=== PATIENT | male | born 1955 | race African-American/Black ===

== ENCOUNTER 2017-10-15 13:35 | Inpatient (IN) ==
[2017-10-15] MEDS ORDERED: PANTOPRAZOLE 40 MG VIAL IV STA (13:47)
[2017-10-15] MEDS ORDERED: ONDANSETRON 4 MG/2 ML VIAL IV STA (13:47)
[2017-10-15] MEDS ORDERED: SODIUM CHLORIDE 0.9% 500 ML IV STA (13:47)
[2017-10-15] MEDS ORDERED: HYDROmorphone 2 MG/1 ML VIAL IV STA (13:47)
[2017-10-15] MEDS ORDERED: DILTIAZEM 50 MG/10 ML VIAL IV STA (13:50)
[2017-10-15] MEDS ORDERED: DILTIAZEM INJ 100 MG in SODIUM CHLORIDE 0.9% 100 ML IV SCH (14:00)
[2017-10-15] MEDS ORDERED: DILTIAZEM 50 MG/10 ML VIAL IV ONE (14:24)
[2017-10-15] MEDS ORDERED: DILTIAZEM 100 MG VIAL.ADD IV ONE (14:24)
[2017-10-15] MEDS ORDERED: PANTOPRAZOLE 40 MG VIAL IV ONE (15:55)
[2017-10-15] MEDS ORDERED: ONDANSETRON 4 MG/2 ML VIAL ONE (15:55)
[2017-10-15] MEDS ORDERED: HYDROmorphone 2 MG/1 ML VIAL ONE (15:56)
[2017-10-15 16:03] LABS: Basophils % 0.7 % (0.0-0.8); Hemoglobin 10.8 GM/DL (14.0-18.0); Immature Granulocytes % 0.4 %; Immature Granulocytes Absolute 0.02 #; Lymphocytes # 0.9 10*3/uL (1.4-4.0); Lymphocytes % 15.1 % (21.2-54.2); Mean Corpuscular HGB Conc 30.9 GM/DL (32-36); Mean Corpuscular Hemoglobin 30 PG (27-34); Mean Corpuscular Volume 96.4 FL (87-102); Mean Platelet Volume 13.3 FL (9.6-12.0); Monocytes # 0.6 10*3/uL (0.11-0.8); Monocytes % 11.4 % (1.7-12.7); Neutrophils # 4.1 10*3/uL (1.4-7.4); Neutrophils % 72.4 % (38.7-73.9); Platelet Count 59 T/CUMM (130-400); Red Blood Count 3.63 MC/CUMM (3.8-5.5); Red Cell Distribution Width 17.3 % (9.3-17.3); White Blood Count 5.6 T/CUMM (4-12)
[2017-10-15 16:21] LABS: Platelet Estimate Decreased
[2017-10-15 16:38] LABS: Alanine Aminotransferase 18 U/L (16-61); Albumin 3.1 G/DL (3.4-5.0); Alkaline Phosphatase 201 U/L (45-117); Aspartate Amino Transferase 22 U/L (0-37); Blood Urea Nitrogen 53 MG/DL (7-18); Calcium 9.1 MG/DL (8.5-10.1); Glucose 60 MG/DL (74-106); Osmolality,Calculated 286.7 MOS/KG (273-304); Potassium 3.7 MMOL/L (3.5-5.1); Sodium 138 MMOL/L (136-145); Total Protein 6.7 G/DL (6.4-8.3)
[2017-10-15 16:44] LABS: Lactic Acid 3.2 MMOL/L (0.4-2.0); Troponin I Only 0.589 NG/ML (0.00-0.045)
[2017-10-15] MEDS ORDERED: NALOXONE 0.4 MG/ML VIAL ONE (16:58)
[2017-10-15] MEDS ORDERED: NALOXONE 0.4 MG/ML VIAL IV STA (17:00)
[2017-10-15] MEDS ORDERED: DEXTROSE 50% 25 GM/50 ML SYRINGE IV ONE (18:47)
[2017-10-15 21:30] LABS: Lactic Acid 2.4 MMOL/L (0.4-2.0)
[2017-10-15] MEDS ORDERED: PHENYLEPHRINE DRIP 40 MG/250 ML PREMIX IV ONE (21:53)
[2017-10-15] MEDS: PHENYLEPHRINE DRIP 40 MG/250 ML PREMIX IV SCH (21:55)
[2017-10-15] MEDS ORDERED: CARVEDILOL 25 MG TABLET PO SCH (22:00)
[2017-10-15] MEDS ORDERED: VECURONIUM 10 MG VIAL IV ONE ×2 (22:07→22:24)
[2017-10-15] MEDS ORDERED: ETOMIDATE 20 MG/10 ML VIAL IV ONE ×2 (22:07→22:24)
[2017-10-15] MEDS ORDERED: PROPOFOL 1,000 MG/100 ML BOTTLE IV ONE (22:10)
[2017-10-15] MEDS ORDERED: ONDANSETRON 4 MG/2 ML VIAL IV PRN (22:24)
[2017-10-15] MEDS ORDERED: NOREPINEPHRINE 8 MG in SODIUM CHLORIDE 0.9% 242 ML IV SCH (22:24)
[2017-10-15] MEDS ORDERED: GLUCAGON 1 MG VIAL IM PRN (22:24)
[2017-10-15] MEDS ORDERED: ZALEPLON 5 MG CAPSULE PO PRN (22:24)
[2017-10-15] MEDS ORDERED: fentaNYL 100 MCG/2 ML VIAL IV PRN (22:24)
[2017-10-15] MEDS ORDERED: AMIODARONE INJ 150 MG in DEXTROSE 5% 100 ML IV ONE (22:24)
[2017-10-15] MEDS ORDERED: SODIUM CHLORIDE 0.9% 1,000 ML IV ONE (22:24)
[2017-10-15] MEDS ORDERED: AMIODARONE INJ 150 MG in DEXTROSE 5% 100 ML IV STA (22:24)
[2017-10-15] MEDS: PROPOFOL 1,000 MG/100 ML BOTTLE IV SCH (22:24)
[2017-10-15] MEDS ORDERED: NOREPINEPHRINE 4 MG/4 ML VIAL IV ONE ×2 (22:33→22:41)
[2017-10-15] MEDS: NOREPINEPHRINE 16 MG in SODIUM CHLORIDE 0.9% 234 ML IV SCH (22:50)
[2017-10-15] MEDS ORDERED: METOPROLOL TARTRATE 5 MG/5 ML VIAL IV ONE (22:52)
[2017-10-15 23:10] LABS: ABG Base Excess -2.4 MMOL/L (-2.5-2.5); ABG HCO3 22.4 MMOL/L (20-26); ABG PCO2 33.3 MM HG (35-48); ABG PH 7.416 (7.35-7.45)
[2017-10-15 23:11] LABS: Basophils % 0.5 % (0.0-0.8); Hematocrit 36.9 VOL% (42.0-52.0); Hemoglobin 11.3 GM/DL (14.0-18.0); Immature Granulocytes % 0.3 %; Immature Granulocytes Absolute 0.02 #; Lymphocytes # 0.8 10*3/uL (1.4-4.0); Lymphocytes % 12.1 % (21.2-54.2); Mean Corpuscular HGB Conc 30.6 GM/DL (32-36); Mean Corpuscular Hemoglobin 29 PG (27-34); Mean Corpuscular Volume 93.9 FL (87-102); Mean Platelet Volume 12.7 FL (9.6-12.0); Monocytes # 0.7 10*3/uL (0.11-0.8); Monocytes % 11.6 % (1.7-12.7); Neutrophils # 4.8 10*3/uL (1.4-7.4); Neutrophils % 75.5 % (38.7-73.9); Platelet Count 64 T/CUMM (130-400); Red Blood Count 3.93 MC/CUMM (3.8-5.5); Red Cell Distribution Width 17.3 % (9.3-17.3); White Blood Count 6.3 T/CUMM (4-12)
[2017-10-15 23:52] LABS: Anisocytosis Slight; Macrocytosis 1+; Platelet Estimate Decreased
[2017-10-15] MEDS ORDERED: ALBUTEROL/IPRATROPIUM 3 ML NEB RESP TX PRN (23:57)
[2017-10-15 23:59] LABS: Alanine Aminotransferase 19 U/L (16-61); Albumin 3.2 G/DL (3.4-5.0); Alkaline Phosphatase 208 U/L (45-117); Aspartate Amino Transferase 19 U/L (0-37); Blood Urea Nitrogen 57 MG/DL (7-18); Calcium 8.8 MG/DL (8.5-10.1); Glucose 105 MG/DL (74-106); Osmolality,Calculated 288.8 MOS/KG (273-304); Potassium 3.9 MMOL/L (3.5-5.1); Sodium 137 MMOL/L (136-145); Total Protein 6.4 G/DL (6.4-8.3)
[2017-10-16 00:04] LABS: Lactic Acid 3.2 MMOL/L (0.4-2.0); Troponin I Only 0.607 NG/ML (0.00-0.045)
[2017-10-16] MEDS: SEVELAMER CARBONATE 800 MG TABLET PO SCH ×4 (00:15→23:54)
[2017-10-16] MEDS: INSULIN LISPRO 100 UNIT/ML SUBCUT SCH ×5 (00:17→23:33)
[2017-10-16] MEDS: METOPROLOL TARTRATE 5 MG/5 ML VIAL IV SCH ×5 (01:07→23:25)
[2017-10-16] MEDS: ENOXAPARIN 30 MG/0.3 ML SYRINGE SUBCUT SCH ×2 (01:07→23:54)
[2017-10-16] MEDS: fentaNYL INJ 1,250 MCG in SODIUM CHLORIDE 0.9% 225 ML IV SCH ×3 (01:29→19:30)
[2017-10-16] MEDS ORDERED: ALBUMIN 25% 50 GM in PREMIX 1 EACH IV ONE (01:47)
[2017-10-16] MEDS: HYDROCORTISONE 100 MG VIAL IV SCH ×3 (02:04→17:37)
[2017-10-16] MEDS: ALBUTEROL/IPRATROPIUM 3 ML NEB RESP TX SCH ×4 (02:05→19:41)
[2017-10-16] MEDS: PROPOFOL 1,000 MG/100 ML BOTTLE IV SCH ×5 (02:07→21:25)
[2017-10-16] MEDS ORDERED: METOPROLOL TARTRATE 5 MG/5 ML VIAL IV ONE (02:40)
[2017-10-16] MEDS ORDERED: AMIODARONE INJ 150 MG in DEXTROSE 5% 100 ML IV ONE (02:44)
[2017-10-16 05:17] LABS: ABG Base Excess -5.5 MMOL/L (-2.5-2.5); ABG Oxygen Saturation 99.2 % (95-100); ABG PCO2 41.7 MM HG (35-48); ABG PH 7.304 (7.35-7.45); ABG TCO2 18.6 MMOL/L (23-27)
[2017-10-16] MEDS ORDERED: AMIODARONE INJ 450 MG in DEXTROSE 5% 241 ML IV SCH (05:30)
[2017-10-16] MEDS ORDERED: NOREPINEPHRINE 4 MG/4 ML VIAL IV ONE ×2 (05:40→14:32)
[2017-10-16] MEDS: NOREPINEPHRINE 16 MG in SODIUM CHLORIDE 0.9% 234 ML IV SCH ×2 (05:46→14:38)
[2017-10-16 06:17] LABS: Basophils % 0.3 % (0.0-0.8); Hematocrit 38.1 VOL% (42.0-52.0); Hemoglobin 11.6 GM/DL (14.0-18.0); Immature Granulocytes % 0.7 %; Immature Granulocytes Absolute 0.06 #; Lymphocytes # 0.5 10*3/uL (1.4-4.0); Lymphocytes % 5.7 % (21.2-54.2); Mean Corpuscular HGB Conc 30.4 GM/DL (32-36); Mean Corpuscular Hemoglobin 29 PG (27-34); Mean Corpuscular Volume 96.5 FL (87-102); Mean Platelet Volume 12.9 FL (9.6-12.0); Monocytes # 0.9 10*3/uL (0.11-0.8); Neutrophils # 7.3 10*3/uL (1.4-7.4); Neutrophils % 83.3 % (38.7-73.9); Red Blood Count 3.95 MC/CUMM (3.8-5.5); Red Cell Distribution Width 17.5 % (9.3-17.3); White Blood Count 8.7 T/CUMM (4-12)
[2017-10-16 06:23] LABS: Platelet Count 84 T/CUMM (130-400)
[2017-10-16 06:44] LABS: Calcium 9.5 MG/DL (8.5-10.1); Magnesium 2.5 MG/DL (1.8-2.4); Osmolality,Calculated 291.8 MOS/KG (273-304); Potassium 4.4 MMOL/L (3.5-5.1)
[2017-10-16 06:47] LABS: Anisocytosis Slight; Burr Cells 1+; Macrocytosis 2+; Platelet Estimate Decreased
[2017-10-16 06:54] LABS: Troponin I Only 0.674 NG/ML (0.00-0.045)
[2017-10-16 08:19] LABS: ABG Base Excess -8.1 MMOL/L (-2.5-2.5); ABG HCO3 17.9 MMOL/L (20-26); ABG Oxygen Saturation 97.5 % (95-100); ABG PCO2 36.4 MM HG (35-48); ABG PH 7.297 (7.35-7.45); ABG TCO2 16.1 MMOL/L (23-27)
[2017-10-16] MEDS: PHENYLEPHRINE DRIP 40 MG/250 ML PREMIX IV SCH ×4 (08:20→22:40)
[2017-10-16] MEDS ORDERED: LIDOCAINE 100 MG/5 ML SYRINGE ONE (08:43)
[2017-10-16] MEDS ORDERED: LIDOCAINE 100 MG/5 ML SYRINGE IV ONE (08:44)
[2017-10-16] MEDS: CINACALCET 30 MG TABLET PO SCH (09:16)
[2017-10-16] MEDS: PANTOPRAZOLE 40 MG TABLET PO SCH (09:16)
[2017-10-16] MEDS ORDERED: VANCOMYCIN INJ 1,000 MG in SODIUM CHLORIDE 0.9% 250 ML IV ONE (09:39)
[2017-10-16] MEDS: LEVOFLOXACIN INJ 250 MG in PREMIX 1 EACH IV SCH (11:17)
[2017-10-16] MEDS: DILTIAZEM INJ 100 MG in SODIUM CHLORIDE 0.9% 100 ML IV SCH ×2 (11:17→20:30)
[2017-10-16] MEDS ORDERED: HEPARIN 10,000 UNIT/10 ML VIAL IV SCH (15:30)
[2017-10-17] MEDS: ALBUTEROL/IPRATROPIUM 3 ML NEB RESP TX SCH ×4 (00:20→19:42)
[2017-10-17] MEDS: NOREPINEPHRINE 16 MG in SODIUM CHLORIDE 0.9% 234 ML IV SCH ×4 (01:50→18:46)
[2017-10-17] MEDS: PROPOFOL 1,000 MG/100 ML BOTTLE IV SCH ×5 (01:50→22:51)
[2017-10-17] MEDS: PHENYLEPHRINE DRIP 40 MG/250 ML PREMIX IV SCH ×7 (01:50→17:30)
[2017-10-17] MEDS: HYDROCORTISONE 100 MG VIAL IV SCH ×3 (03:59→17:13)
[2017-10-17] MEDS: DILTIAZEM INJ 100 MG in SODIUM CHLORIDE 0.9% 100 ML IV SCH ×3 (04:00→17:12)
[2017-10-17] MEDS: fentaNYL INJ 1,250 MCG in SODIUM CHLORIDE 0.9% 225 ML IV SCH ×2 (05:21→14:43)
[2017-10-17 05:32] LABS: Basophils % 0.2 % (0.0-0.8); Hematocrit 40.8 VOL% (42.0-52.0); Hemoglobin 12.8 GM/DL (14.0-18.0); Immature Granulocytes % 0.6 %; Immature Granulocytes Absolute 0.06 #; Lymphocytes # 0.5 10*3/uL (1.4-4.0); Lymphocytes % 5.2 % (21.2-54.2); Mean Corpuscular HGB Conc 31.4 GM/DL (32-36); Mean Corpuscular Hemoglobin 29 PG (27-34); Mean Corpuscular Volume 93.6 FL (87-102); Mean Platelet Volume 11.7 FL (9.6-12.0); Monocytes # 1.5 10*3/uL (0.11-0.8); Monocytes % 14.6 % (1.7-12.7); NRBC # 0.04 10*3/uL; Neutrophils # 7.9 10*3/uL (1.4-7.4); Neutrophils % 79.4 % (38.7-73.9); Platelet Count 124 T/CUMM (130-400); Red Blood Count 4.36 MC/CUMM (3.8-5.5); Red Cell Distribution Width 17.8 % (9.3-17.3)
[2017-10-17 05:57] LABS: Calcium 9.4 MG/DL (8.5-10.1); Magnesium 2.3 MG/DL (1.8-2.4); Osmolality,Calculated 283.2 MOS/KG (273-304); Potassium 4.5 MMOL/L (3.5-5.1)
[2017-10-17] MEDS: METOPROLOL TARTRATE 5 MG/5 ML VIAL IV SCH ×3 (06:40→17:13)
[2017-10-17] MEDS ORDERED: AMIODARONE INJ 150 MG in DEXTROSE 5% 100 ML IV ONE (07:20)
[2017-10-17] MEDS ORDERED: AMIODARONE INJ 450 MG in DEXTROSE 5% 241 ML IV SCH (07:30)
[2017-10-17 07:52] LABS: ABG Base Excess -7.6 MMOL/L (-2.5-2.5); ABG HCO3 18.3 MMOL/L (20-26); ABG Oxygen Saturation 95.4 % (95-100); ABG PCO2 42.5 MM HG (35-48); ABG PH 7.264 (7.35-7.45); ABG PO2 97.8 MM HG (80-95); ABG TCO2 17.3 MMOL/L (23-27)
[2017-10-17] MEDS ORDERED: LIDOCAINE 1% 20 ML VIAL MISC INJ ONE (08:20)
[2017-10-17] MEDS ORDERED: LIDOCAINE 2% 20 ML VIAL RESP TX ONE (08:20)
[2017-10-17] MEDS: INSULIN LISPRO 100 UNIT/ML SUBCUT SCH ×4 (08:48→23:30)
[2017-10-17] MEDS: PANTOPRAZOLE 40 MG TABLET PO SCH (08:55)
[2017-10-17] MEDS: CINACALCET 30 MG TABLET PO SCH (08:55)
[2017-10-17] MEDS: SEVELAMER CARBONATE 800 MG TABLET PO SCH ×3 (08:55→22:10)
[2017-10-17] MEDS ORDERED: NOREPINEPHRINE 4 MG/4 ML VIAL IV ONE (11:13)
[2017-10-17] MEDS ORDERED: ALBUMIN 25% 12.5 GM in PREMIX 1 EACH IV SCH (13:30)
[2017-10-17] MEDS: AMIODARONE INJ 450 MG in DEXTROSE 5% 241 ML IV SCH (16:25)
[2017-10-17] MEDS: PHENYLEPHRINE INJ 160 MG in SODIUM CHLORIDE 0.9% 234 ML IV SCH (19:25)
[2017-10-17] MEDS: ENOXAPARIN 30 MG/0.3 ML SYRINGE SUBCUT SCH (22:10)
[2017-10-18] MEDS: NOREPINEPHRINE 16 MG in SODIUM CHLORIDE 0.9% 234 ML IV SCH ×3 (00:27→15:16)
[2017-10-18] MEDS: METOPROLOL TARTRATE 5 MG/5 ML VIAL IV SCH ×4 (00:28→18:09)
[2017-10-18] MEDS: INSULIN LISPRO 100 UNIT/ML SUBCUT SCH ×4 (00:28→18:49)
[2017-10-18] MEDS: ALBUTEROL/IPRATROPIUM 3 ML NEB RESP TX SCH ×4 (01:46→21:13)
[2017-10-18] MEDS: DILTIAZEM INJ 100 MG in SODIUM CHLORIDE 0.9% 100 ML IV SCH ×4 (02:18→20:03)
[2017-10-18] MEDS: PHENYLEPHRINE INJ 160 MG in SODIUM CHLORIDE 0.9% 234 ML IV SCH ×3 (02:56→18:49)
[2017-10-18 04:44] LABS: ABG Base Excess -8.7 MMOL/L (-2.5-2.5); ABG HCO3 17.4 MMOL/L (20-26); ABG Oxygen Saturation 93.3 % (95-100); ABG PCO2 53.6 MM HG (35-48); ABG PO2 88.8 MM HG (80-95); ABG TCO2 18.4 MMOL/L (23-27)
[2017-10-18 04:53] LABS: Basophils % 0.1 % (0.0-0.8); Hematocrit 42.4 VOL% (42.0-52.0); Hemoglobin 13.1 GM/DL (14.0-18.0); Immature Granulocytes % 0.5 %; Immature Granulocytes Absolute 0.05 #; Lymphocytes # 0.4 10*3/uL (1.4-4.0); Lymphocytes % 3.8 % (21.2-54.2); Mean Corpuscular HGB Conc 30.9 GM/DL (32-36); Mean Corpuscular Hemoglobin 29 PG (27-34); Mean Corpuscular Volume 94.9 FL (87-102); Mean Platelet Volume 11.5 FL (9.6-12.0); Monocytes # 1.8 10*3/uL (0.11-0.8); Monocytes % 16.1 % (1.7-12.7); NRBC # 0.13 10*3/uL; Neutrophils # 8.8 10*3/uL (1.4-7.4); Neutrophils % 79.5 % (38.7-73.9); Platelet Count 149 T/CUMM (130-400); Red Blood Count 4.47 MC/CUMM (3.8-5.5); Red Cell Distribution Width 17.9 % (9.3-17.3); White Blood Count 11.1 T/CUMM (4-12)
[2017-10-18 04:54] LABS: ABG PH 7.187 (7.35-7.45)
[2017-10-18] MEDS: HYDROCORTISONE 100 MG VIAL IV SCH ×3 (05:05→18:09)
[2017-10-18 05:32] LABS: Magnesium 2.4 MG/DL (1.8-2.4); Osmolality,Calculated 286.5 MOS/KG (273-304); Potassium 5.6 MMOL/L (3.5-5.1)
[2017-10-18 05:39] LABS: Burr Cells Slight; Giant Platelets Few; Hypochromasia Slight; Lymphocytes 3 % (20-55); Macrocytosis Slight; Nucleated Red Blood Cells 3 (0-5); Ovalocytes Slight; Platelet Estimate Normal; Segmented Neutrophils 85 % (50-85); Total Cells Counted 100
[2017-10-18 06:19] LABS: HIV Antigen/Antibody Result Nonreactive (Nonreactive); Hepatitis B Surface Ag Quant < 0.10 Index; Hepatitis B Surface Ag Result Negative (Negative); Hepatitis C Virus Ab Quant 0.06 Index; Hepatitis C Virus Ab Result Negative (Negative)
[2017-10-18 07:47] LABS: ABG HCO3 17.6 MMOL/L (20-26); ABG PCO2 36.5 MM HG (35-48); ABG PH 7.301 (7.35-7.45); ABG PO2 90.5 MM HG (80-95); ABG TCO2 18.7 MMOL/L (23-27)
[2017-10-18 07:48] LABS: ABG Oxygen Saturation 96.2 % (95-100)
[2017-10-18] MEDS: AMIODARONE INJ 450 MG in DEXTROSE 5% 241 ML IV SCH (09:23)
[2017-10-18] MEDS: SEVELAMER CARBONATE 800 MG TABLET PO SCH ×3 (10:41→22:19)
[2017-10-18] MEDS: LEVOFLOXACIN INJ 250 MG in PREMIX 1 EACH IV SCH (10:41)
[2017-10-18] MEDS: CINACALCET 30 MG TABLET PO SCH (10:41)
[2017-10-18] MEDS: PANTOPRAZOLE 40 MG TABLET PO SCH (10:42)
[2017-10-18] MEDS: AMIODARONE 200 MG TABLET PO SCH ×2 (10:42→22:19)
[2017-10-18] MEDS: fentaNYL INJ 1,250 MCG in SODIUM CHLORIDE 0.9% 225 ML IV SCH (20:02)
[2017-10-18] MEDS: ENOXAPARIN 30 MG/0.3 ML SYRINGE SUBCUT SCH (22:20)
[2017-10-18] MEDS: PROPOFOL 1,000 MG/100 ML BOTTLE IV SCH (22:30)
[2017-10-19] MEDS: INSULIN LISPRO 100 UNIT/ML SUBCUT SCH ×4 (00:58→18:15)
[2017-10-19] MEDS: METOPROLOL TARTRATE 5 MG/5 ML VIAL IV SCH ×2 (00:58→06:36)
[2017-10-19] MEDS: NOREPINEPHRINE 16 MG in SODIUM CHLORIDE 0.9% 234 ML IV SCH ×2 (00:59→12:29)
[2017-10-19] MEDS: ALBUTEROL/IPRATROPIUM 3 ML NEB RESP TX SCH ×4 (01:08→20:59)
[2017-10-19] MEDS: DILTIAZEM INJ 100 MG in SODIUM CHLORIDE 0.9% 100 ML IV SCH (02:17)
[2017-10-19] MEDS: HYDROCORTISONE 100 MG VIAL IV SCH ×4 (02:17→20:47)
[2017-10-19] MEDS: PHENYLEPHRINE INJ 160 MG in SODIUM CHLORIDE 0.9% 234 ML IV SCH ×3 (03:00→19:17)
[2017-10-19 05:09] LABS: Hematocrit 41.6 VOL% (42.0-52.0); Hemoglobin 13.4 GM/DL (14.0-18.0); Immature Granulocytes % 0.4 %; Immature Granulocytes Absolute 0.05 #; Lymphocytes # 0.3 10*3/uL (1.4-4.0); Lymphocytes % 2.7 % (21.2-54.2); Mean Corpuscular HGB Conc 32.2 GM/DL (32-36); Mean Corpuscular Hemoglobin 30 PG (27-34); Mean Corpuscular Volume 91.8 FL (87-102); Mean Platelet Volume 12.1 FL (9.6-12.0); Monocytes # 1.1 10*3/uL (0.11-0.8); Monocytes % 10.1 % (1.7-12.7); NRBC # 0.14 10*3/uL; Neutrophils # 9.7 10*3/uL (1.4-7.4); Neutrophils % 86.8 % (38.7-73.9); Platelet Count 130 T/CUMM (130-400); Red Blood Count 4.53 MC/CUMM (3.8-5.5); Red Cell Distribution Width 18.5 % (9.3-17.3); White Blood Count 11.2 T/CUMM (4-12)
[2017-10-19] MEDS: fentaNYL INJ 1,250 MCG in SODIUM CHLORIDE 0.9% 225 ML IV SCH ×3 (05:21→19:17)
[2017-10-19 05:44] LABS: Albumin 3.1 G/DL (3.4-5.0); Bilirubin,Total 1.2 MG/DL (0.2-1.0); Calcium 9.4 MG/DL (8.5-10.1); Osmolality,Calculated 283.2 MOS/KG (273-304); Potassium 4.3 MMOL/L (3.5-5.1); Total Protein 6.5 G/DL (6.4-8.3)
[2017-10-19 06:01] LABS: ABG Base Excess -6.7 MMOL/L (-2.5-2.5); ABG HCO3 20.1 MMOL/L (20-26); ABG Oxygen Saturation 88.3 % (95-100); ABG PCO2 44.7 MM HG (35-48); ABG PO2 72.7 MM HG (80-95); ABG TCO2 21.4 MMOL/L (23-27)
[2017-10-19 06:23] LABS: Lymphocytes 3 % (20-55); Microcytosis 1+; Nucleated Red Blood Cells 1 (0-5); Segmented Neutrophils 93 % (50-85); Total Cells Counted 100
[2017-10-19 06:24] LABS: Burr Cells Slight; Hypochromasia 1+; Ovalocytes Slight; Platelet Estimate Decreased
[2017-10-19] MEDS ORDERED: VECURONIUM 10 MG VIAL IV ONE ×2 (08:48→08:50)
[2017-10-19] MEDS ORDERED: SODIUM CHLORIDE 0.9% 500 ML IV ONE (08:48)
[2017-10-19] MEDS: SEVELAMER CARBONATE 800 MG TABLET PO SCH ×3 (10:13→20:47)
[2017-10-19] MEDS: CINACALCET 30 MG TABLET PO SCH (10:13)
[2017-10-19] MEDS: cefTRIAXone 1,000 MG in SYRINGE 1 EACH IV SCH (10:14)
[2017-10-19] MEDS: PANTOPRAZOLE 40 MG TABLET PO SCH (10:14)
[2017-10-19] MEDS: AMIODARONE 200 MG TABLET PO SCH ×2 (10:14→20:47)
[2017-10-19] MEDS: FLUCONAZOLE 200 MG TABLET PO SCH (12:57)
[2017-10-19] MEDS: FAT EMULSION 20% 250 ML IV SCH (15:23)
[2017-10-19] MEDS ORDERED: INSULIN REGULAR IV SCH (17:00)
[2017-10-19] MEDS ORDERED: MULTIVITAMIN IV SCH (17:00)
[2017-10-19] MEDS ORDERED: [UNRECOGNIZED DRUG - OTHER] IV SCH (17:00)
[2017-10-19] MEDS ORDERED: DEXTROSE 10% 1,000 ML IV PRN (17:00)
[2017-10-19] MEDS: ENOXAPARIN 30 MG/0.3 ML SYRINGE SUBCUT SCH (20:46)
[2017-10-20] MEDS: PROPOFOL 1,000 MG/100 ML BOTTLE IV SCH ×2 (00:30→23:34)
[2017-10-20] MEDS: fentaNYL INJ 1,250 MCG in SODIUM CHLORIDE 0.9% 225 ML IV SCH ×4 (01:03→18:15)
[2017-10-20] MEDS: INSULIN LISPRO 100 UNIT/ML SUBCUT SCH ×4 (01:18→17:40)
[2017-10-20] MEDS: ALBUTEROL/IPRATROPIUM 3 ML NEB RESP TX SCH ×4 (01:31→21:01)
[2017-10-20] MEDS: DILTIAZEM INJ 100 MG in SODIUM CHLORIDE 0.9% 100 ML IV SCH ×3 (01:40→23:38)
[2017-10-20] MEDS: NOREPINEPHRINE 16 MG in SODIUM CHLORIDE 0.9% 234 ML IV SCH (02:23)
[2017-10-20] MEDS: PHENYLEPHRINE INJ 160 MG in SODIUM CHLORIDE 0.9% 234 ML IV SCH ×3 (02:27→17:39)
[2017-10-20 05:29] LABS: ABG Base Excess -6.6 MMOL/L (-2.5-2.5); ABG HCO3 19.2 MMOL/L (20-26); ABG Oxygen Saturation 95.5 % (95-100); ABG PH 7.309 (7.35-7.45); ABG TCO2 20.3 MMOL/L (23-27)
[2017-10-20 05:39] LABS: Basophils % 0.1 % (0.0-0.8); Hematocrit 41.5 VOL% (42.0-52.0); Hemoglobin 12.8 GM/DL (14.0-18.0); Immature Granulocytes % 0.5 %; Immature Granulocytes Absolute 0.05 #; Lymphocytes # 0.3 10*3/uL (1.4-4.0); Lymphocytes % 2.9 % (21.2-54.2); Mean Corpuscular HGB Conc 30.8 GM/DL (32-36); Mean Corpuscular Hemoglobin 29 PG (27-34); Mean Corpuscular Volume 94.5 FL (87-102); Mean Platelet Volume 11.6 FL (9.6-12.0); Monocytes # 1.4 10*3/uL (0.11-0.8); NRBC # 0.06 10*3/uL; Neutrophils # 8.1 10*3/uL (1.4-7.4); Neutrophils % 82.5 % (38.7-73.9); Platelet Count 123 T/CUMM (130-400); Red Blood Count 4.39 MC/CUMM (3.8-5.5); Red Cell Distribution Width 18.7 % (9.3-17.3); White Blood Count 9.8 T/CUMM (4-12)
[2017-10-20] MEDS: HYDROCORTISONE 100 MG VIAL IV SCH ×3 (05:56→21:30)
[2017-10-20 06:15] LABS: Albumin 2.8 G/DL (3.4-5.0); Bilirubin,Total 1.4 MG/DL (0.2-1.0); Calcium 8.5 MG/DL (8.5-10.1); Magnesium 2.6 MG/DL (1.8-2.4); Osmolality,Calculated 298.2 MOS/KG (273-304); Potassium 4.5 MMOL/L (3.5-5.1); Total Protein 5.8 G/DL (6.4-8.3)
[2017-10-20 06:40] LABS: Hypochromasia 1+; Lymphocytes 6 % (20-55); Nucleated Red Blood Cells 2 (0-5); Pappenheimer Bodies Few; Segmented Neutrophils 86 % (50-85); Total Cells Counted 100
[2017-10-20 06:41] LABS: Acanthocytes Few; Burr Cells Slight; Microcytosis 1+
[2017-10-20 06:42] LABS: Elliptocytes Few
[2017-10-20] MEDS: PANTOPRAZOLE 40 MG TABLET PO SCH (09:29)
[2017-10-20] MEDS: FLUCONAZOLE 200 MG TABLET PO SCH (09:29)
[2017-10-20] MEDS: SEVELAMER CARBONATE 800 MG TABLET PO SCH ×3 (09:29→21:30)
[2017-10-20] MEDS: CINACALCET 30 MG TABLET PO SCH (09:29)
[2017-10-20] MEDS: AMIODARONE 200 MG TABLET PO SCH ×2 (09:30→21:30)
[2017-10-20] MEDS: cefTRIAXone 1,000 MG in SYRINGE 1 EACH IV SCH (09:38)
[2017-10-20] MEDS: LEVOFLOXACIN INJ 250 MG in PREMIX 1 EACH IV SCH (09:46)
[2017-10-20] MEDS: INSULIN GLARGINE 100 UNIT/ML SUBCUT SCH (12:34)
[2017-10-20] MEDS: FAT EMULSION 20% 250 ML IV SCH (17:42)
[2017-10-20] MEDS: [UNRECOGNIZED DRUG - OTHER] IV SCH (17:46)
[2017-10-20] MEDS: INSULIN REGULAR IV SCH (17:46)
[2017-10-20] MEDS: ELECTROLYTE IV SCH (17:46)
[2017-10-20] MEDS: MULTIVITAMIN IV SCH (17:46)
[2017-10-20] MEDS: ENOXAPARIN 30 MG/0.3 ML SYRINGE SUBCUT SCH (21:30)
[2017-10-21] MEDS: INSULIN LISPRO 100 UNIT/ML SUBCUT SCH ×5 (00:43→23:33)
[2017-10-21] MEDS: PHENYLEPHRINE INJ 160 MG in SODIUM CHLORIDE 0.9% 234 ML IV SCH ×3 (01:04→17:41)
[2017-10-21] MEDS: NOREPINEPHRINE 16 MG in SODIUM CHLORIDE 0.9% 234 ML IV SCH ×3 (01:20→23:12)
[2017-10-21] MEDS: fentaNYL INJ 1,250 MCG in SODIUM CHLORIDE 0.9% 225 ML IV SCH ×4 (01:21→20:07)
[2017-10-21] MEDS: ALBUTEROL/IPRATROPIUM 3 ML NEB RESP TX SCH ×4 (01:36→20:14)
[2017-10-21 05:47] LABS: ABG Base Excess -8.8 MMOL/L (-2.5-2.5); ABG HCO3 17.5 MMOL/L (20-26); ABG PCO2 48.4 MM HG (35-48); ABG PH 7.213 (7.35-7.45); ABG TCO2 17.4 MMOL/L (23-27)
[2017-10-21] MEDS: HYDROCORTISONE 100 MG VIAL IV SCH ×2 (05:47→12:04)
[2017-10-21 06:08] LABS: Basophils % 0.1 % (0.0-0.8); Hematocrit 42.5 VOL% (42.0-52.0); Hemoglobin 13.1 GM/DL (14.0-18.0); Immature Granulocytes % 0.8 %; Immature Granulocytes Absolute 0.08 #; Lymphocytes # 0.4 10*3/uL (1.4-4.0); Lymphocytes % 3.6 % (21.2-54.2); Mean Corpuscular HGB Conc 30.8 GM/DL (32-36); Mean Corpuscular Hemoglobin 29 PG (27-34); Mean Corpuscular Volume 95.3 FL (87-102); Mean Platelet Volume 11.5 FL (9.6-12.0); Monocytes # 1.3 10*3/uL (0.11-0.8); NRBC # 0.03 10*3/uL; Neutrophils # 7.9 10*3/uL (1.4-7.4); Neutrophils % 82.5 % (38.7-73.9); Platelet Count 110 T/CUMM (130-400); Red Blood Count 4.46 MC/CUMM (3.8-5.5); Red Cell Distribution Width 18.6 % (9.3-17.3); White Blood Count 9.6 T/CUMM (4-12)
[2017-10-21 06:33] LABS: Burr Cells 2+
[2017-10-21 06:34] LABS: Target Cells Slight
[2017-10-21 06:35] LABS: Albumin 2.5 G/DL (3.4-5.0); Bilirubin,Total 1.1 MG/DL (0.2-1.0); Calcium 8.5 MG/DL (8.5-10.1); Magnesium 2.4 MG/DL (1.8-2.4); Osmolality,Calculated 299.5 MOS/KG (273-304); Potassium 4.5 MMOL/L (3.5-5.1); Total Protein 6.4 G/DL (6.4-8.3)
[2017-10-21 06:38] LABS: ABG Base Excess -8.4 MMOL/L (-2.5-2.5); ABG HCO3 17.7 MMOL/L (20-26); ABG Oxygen Saturation 98.4 % (95-100); ABG PCO2 49.2 MM HG (35-48); ABG PH 7.214 (7.35-7.45); ABG TCO2 17.8 MMOL/L (23-27)
[2017-10-21] MEDS: FLUCONAZOLE 200 MG TABLET PO SCH (08:52)
[2017-10-21] MEDS: INSULIN GLARGINE 100 UNIT/ML SUBCUT SCH (08:52)
[2017-10-21] MEDS: CINACALCET 30 MG TABLET PO SCH (08:52)
[2017-10-21] MEDS: AMIODARONE 200 MG TABLET PO SCH ×2 (08:52→20:17)
[2017-10-21] MEDS: PANTOPRAZOLE 40 MG TABLET PO SCH (08:52)
[2017-10-21] MEDS: SEVELAMER CARBONATE 800 MG TABLET PO SCH ×3 (08:52→20:17)
[2017-10-21] MEDS: cefTRIAXone 1,000 MG in SYRINGE 1 EACH IV SCH (08:52)
[2017-10-21] MEDS ORDERED: MIDAZOLAM 2 MG/2 ML VIAL ONE (11:07)
[2017-10-21] MEDS ORDERED: AMIODARONE 150 MG/3 ML VIAL ONE (11:08)
[2017-10-21] MEDS ORDERED: MIDAZOLAM 2 MG/2 ML VIAL IV ONE (11:09)
[2017-10-21] MEDS ORDERED: AMIODARONE INJ 150 MG in DEXTROSE 5% 100 ML IV ONE (11:20)
[2017-10-21] MEDS ORDERED: AMIODARONE INJ 450 MG in DEXTROSE 5% 241 ML IV SCH (12:00)
[2017-10-21] MEDS: FAT EMULSION 20% 250 ML IV SCH (13:56)
[2017-10-21] MEDS: [UNRECOGNIZED DRUG - OTHER] IV SCH (16:20)
[2017-10-21] MEDS: INSULIN REGULAR IV SCH (16:20)
[2017-10-21] MEDS: MULTIVITAMIN IV SCH (16:20)
[2017-10-21] MEDS: ELECTROLYTE IV SCH (16:20)
[2017-10-21] MEDS: AMIODARONE INJ 450 MG in DEXTROSE 5% 241 ML IV SCH (20:06)
[2017-10-21] MEDS: ENOXAPARIN 30 MG/0.3 ML SYRINGE SUBCUT SCH (20:16)
[2017-10-21] MEDS: PROPOFOL 1,000 MG/100 ML BOTTLE IV SCH (23:11)
[2017-10-21] MEDS: DILTIAZEM INJ 100 MG in SODIUM CHLORIDE 0.9% 100 ML IV SCH (23:12)
[2017-10-22] MEDS: ALBUTEROL/IPRATROPIUM 3 ML NEB RESP TX SCH ×4 (00:38→19:35)
[2017-10-22] MEDS: fentaNYL INJ 1,250 MCG in SODIUM CHLORIDE 0.9% 225 ML IV SCH ×6 (01:12→21:02)
[2017-10-22 04:02] LABS: ABG Base Excess -7.3 MMOL/L (-2.5-2.5); ABG HCO3 19.4 MMOL/L (20-26); ABG PCO2 43.9 MM HG (35-48); ABG PH 7.264 (7.35-7.45); ABG PO2 125.6 MM HG (80-95); ABG TCO2 20.8 MMOL/L (23-27)
[2017-10-22 04:13] LABS: Hematocrit 38.1 VOL% (42.0-52.0); Hemoglobin 12.4 GM/DL (14.0-18.0); Immature Granulocytes % 0.8 %; Immature Granulocytes Absolute 0.07 #; Lymphocytes # 0.2 10*3/uL (1.4-4.0); Lymphocytes % 1.7 % (21.2-54.2); Mean Corpuscular HGB Conc 32.5 GM/DL (32-36); Mean Corpuscular Hemoglobin 30 PG (27-34); Mean Corpuscular Volume 91.8 FL (87-102); Mean Platelet Volume 12.5 FL (9.6-12.0); Monocytes # 0.8 10*3/uL (0.11-0.8); Monocytes % 8.7 % (1.7-12.7); Neutrophils # 8.2 10*3/uL (1.4-7.4); Neutrophils % 88.8 % (38.7-73.9); Platelet Count 60 T/CUMM (130-400); Red Blood Count 4.15 MC/CUMM (3.8-5.5); Red Cell Distribution Width 18.6 % (9.3-17.3); White Blood Count 9.3 T/CUMM (4-12)
[2017-10-22 04:39] LABS: Band Neutrophils 1 % (0-10); Elliptocytes Few; Giant Platelets Few; Hypochromasia 1+; Lymphocytes 3 % (20-55); Microcytosis Slight; Platelet Estimate Decreased; Segmented Neutrophils 89 % (50-85); Total Cells Counted 100
[2017-10-22 04:40] LABS: Albumin 2.2 G/DL (3.4-5.0); Bilirubin,Total 1.2 MG/DL (0.2-1.0); Calcium 8.3 MG/DL (8.5-10.1); Magnesium 2.4 MG/DL (1.8-2.4); Osmolality,Calculated 291.5 MOS/KG (273-304); Potassium 4.4 MMOL/L (3.5-5.1); Total Protein 5.6 G/DL (6.4-8.3)
[2017-10-22] MEDS: INSULIN LISPRO 100 UNIT/ML SUBCUT SCH ×3 (06:22→17:45)
[2017-10-22] MEDS: INSULIN GLARGINE 100 UNIT/ML SUBCUT SCH (08:18)
[2017-10-22] MEDS: SEVELAMER CARBONATE 800 MG TABLET PO SCH ×3 (08:19→20:28)
[2017-10-22] MEDS: PANTOPRAZOLE 40 MG TABLET PO SCH (08:20)
[2017-10-22] MEDS: FLUCONAZOLE 200 MG TABLET PO SCH (08:21)
[2017-10-22] MEDS: AMIODARONE 200 MG TABLET PO SCH ×2 (08:21→20:28)
[2017-10-22] MEDS: CINACALCET 30 MG TABLET PO SCH (08:21)
[2017-10-22] MEDS: cefTRIAXone 1,000 MG in SYRINGE 1 EACH IV SCH (08:22)
[2017-10-22] MEDS ORDERED: HYDROCORTISONE 100 MG VIAL IV SCH (09:00)
[2017-10-22] MEDS: LEVOFLOXACIN INJ 250 MG in PREMIX 1 EACH IV SCH (09:27)
[2017-10-22] MEDS: AMIODARONE INJ 450 MG in DEXTROSE 5% 241 ML IV SCH (12:05)
[2017-10-22] MEDS: PROPOFOL 1,000 MG/100 ML BOTTLE IV SCH ×2 (13:30→23:03)
[2017-10-22] MEDS: FAT EMULSION 20% 250 ML IV SCH (13:54)
[2017-10-22] MEDS: PHENYLEPHRINE INJ 160 MG in SODIUM CHLORIDE 0.9% 234 ML IV SCH (16:35)
[2017-10-22] MEDS: NOREPINEPHRINE 16 MG in SODIUM CHLORIDE 0.9% 234 ML IV SCH ×2 (16:44→23:04)
[2017-10-22] MEDS ORDERED: [UNRECOGNIZED DRUG - OTHER] IV SCH (17:00)
[2017-10-22] MEDS ORDERED: MULTIVITAMIN IV SCH (17:00)
[2017-10-22] MEDS ORDERED: INSULIN REGULAR IV SCH (17:00)
[2017-10-22] MEDS ORDERED: HEPARIN 5,000 UNIT/1 ML VIAL SUBCUT ONE (17:04)
[2017-10-22] MEDS ORDERED: HEPARIN 5,000 UNIT/1 ML VIAL IV ONE (17:39)
[2017-10-22] MEDS: HEPARIN DRIP 25,000 UNITS/500 ML PREMIX IV SCH (18:36)
[2017-10-22] MEDS: fentaNYL INJ 2,500 MCG in SODIUM CHLORIDE 0.9% 450 ML IV SCH (23:02)
[2017-10-22] MEDS: DILTIAZEM INJ 100 MG in SODIUM CHLORIDE 0.9% 100 ML IV SCH (23:04)
[2017-10-23] MEDS: INSULIN LISPRO 100 UNIT/ML SUBCUT SCH ×3 (00:13→13:38)
[2017-10-23 00:56] LABS: INR 1.1; PT Patient Result 11.7 SECS
[2017-10-23] MEDS: ALBUTEROL/IPRATROPIUM 3 ML NEB RESP TX SCH ×2 (00:58→07:25)
[2017-10-23] MEDS: DEXTROSE 50% 25 GM/50 ML VIAL IV PRN ×3 (01:21→05:27)
[2017-10-23] MEDS: fentaNYL INJ 2,500 MCG in SODIUM CHLORIDE 0.9% 450 ML IV SCH (05:06)
[2017-10-23 05:30] LABS: ABG Base Excess -5.6 MMOL/L (-2.5-2.5); ABG HCO3 21.1 MMOL/L (20-26); ABG PH 7.279 (7.35-7.45); ABG PO2 84.6 MM HG (80-95); ABG TCO2 22.5 MMOL/L (23-27)
[2017-10-23 05:35] LABS: Basophils % 0.1 % (0.0-0.8); Eosinophils % 0.1 % (0.00-10.9); Hemoglobin 11.7 GM/DL (14.0-18.0); Immature Granulocytes Absolute 0.09 #; Lymphocytes # 0.2 10*3/uL (1.4-4.0); Lymphocytes % 2.1 % (21.2-54.2); Mean Corpuscular HGB Conc 31.6 GM/DL (32-36); Mean Corpuscular Hemoglobin 30 PG (27-34); Mean Corpuscular Volume 93.4 FL (87-102); Mean Platelet Volume 12.3 FL (9.6-12.0); Monocytes # 1.3 10*3/uL (0.11-0.8); Monocytes % 13.5 % (1.7-12.7); Neutrophils # 7.8 10*3/uL (1.4-7.4); Neutrophils % 83.2 % (38.7-73.9); Red Blood Count 3.96 MC/CUMM (3.8-5.5); Red Cell Distribution Width 18.2 % (9.3-17.3); White Blood Count 9.3 T/CUMM (4-12)
[2017-10-23 05:39] LABS: Platelet Count 70 T/CUMM (130-400)
[2017-10-23 05:57] LABS: Burr Cells Slight; Eosinophils 5 % (0-10); Giant Platelets Few; Hypochromasia 1+; Lymphocytes 2 % (20-55); Nucleated Red Blood Cells 1 (0-5); Ovalocytes Slight; Platelet Estimate Decreased; Segmented Neutrophils 79 % (50-85); Total Cells Counted 100
[2017-10-23 05:58] LABS: Microcytosis Slight
[2017-10-23 07:16] LABS: Alanine Aminotransferase < 9 U/L (16-61); Alkaline Phosphatase 132 U/L (45-117); Aspartate Amino Transferase 18 U/L (0-37); Blood Urea Nitrogen 53 MG/DL (7-18); Calcium 8.1 MG/DL (8.5-10.1); Glucose 65 MG/DL (74-106); Magnesium 2.2 MG/DL (1.8-2.4); Osmolality,Calculated 275.5 MOS/KG (273-304); Sodium 132 MMOL/L (136-145); Total Protein 5.6 G/DL (6.4-8.3)
[2017-10-23] MEDS: SEVELAMER CARBONATE 800 MG TABLET PO SCH (08:32)
[2017-10-23] MEDS: CINACALCET 30 MG TABLET PO SCH (08:33)
[2017-10-23] MEDS: AMIODARONE 200 MG TABLET PO SCH (08:33)
[2017-10-23] MEDS: PANTOPRAZOLE 40 MG TABLET PO SCH (08:33)
[2017-10-23] MEDS: FLUCONAZOLE 200 MG TABLET PO SCH (08:33)
[2017-10-23] MEDS: cefTRIAXone 1,000 MG in SYRINGE 1 EACH IV SCH (08:35)
[2017-10-23] MEDS: INSULIN GLARGINE 100 UNIT/ML SUBCUT SCH (08:56)
[2017-10-23] MEDS ORDERED: HYDROCORTISONE 100 MG VIAL IV SCH (09:00)
[2017-10-23] MEDS: HEPARIN DRIP 25,000 UNITS/500 ML PREMIX IV SCH (09:17)
[2017-10-23] MEDS: NOREPINEPHRINE 16 MG in SODIUM CHLORIDE 0.9% 234 ML IV SCH (11:28)
[2017-10-23] MEDS ORDERED: MORPHINE 2 MG/1 ML SYRINGE IV ONE ×3 (11:53→13:00)
[2017-10-23] MEDS ORDERED: MORPHINE PCA 30 MG/30 ML SYRINGE IV SCH (12:00)
[2017-10-23] MEDS ORDERED: MORPHINE 2 MG/1 ML SYRINGE IV PRN (12:49)
[2017-10-23 14:21] VITALS: BP 45/31
== END 2017-10-23 12:58 | disposition expired | DRG 308 ==
LOC: EDBD → EDUNIT# → N.ED 13:35 → N.EDINP 16:55 → SUATTDRO 16:55 → N.CC 21:33
PROVIDERS: ADMIT Internal Medicine Cardiovascular Disease; ATTEND Internal Medicine
PROC: IRTHORA (2017-10-18 12:55)